=== PATIENT | male | born 1995 | race Caucasian/White ===

== ENCOUNTER 2021-02-16 18:40 | Emergency (ER) | payer OTHER, MEDICAID, SELFPAY ==
[2021-02-16 18:52] VITALS: BP 141/81; PULSE 66; RESP 16; TEMP 37.4; O2SAT 99; BMI 26.2
[2021-02-16 19:18] LABS: COVID19 -Nasal RAPID Negative (Negative)
--- NOTE | 2021-02-16 19:35 | ED.URI ---
HPI - URI/Sore Throat <Navdeep Marrero PA-C - Last Filed: 02/16/21 19:48> General Chief Complaint: Upper Respiratory Symptoms Stated Complaint: Wet Cough, Congested Chest Area Time Seen by Provider: 02/16/21 19:01 Source: patient Mode of arrival: Ambulatory History of Present Illness HPI Narrative: Domo presents today with chief complaint fever that started a couple days ago, sinus congestion, sore throat and cough. He reports that the fevers nor with him and was only for about 1 day. He denies any significant chest pain, difficulty breathing, shortness of breath or any other acute concerns or complaints at this time. He is otherwise healthy and denies any significant past medical problems. He is unvaccinated for COVID but denies any known contacts. Related Data Previous Rx's Medication Instructions Recorded albuterol sulfate 90 mcg/actuation 2 puff INHALATION Q6H PRN #8.5 g 02/16/21 aerosol inhaler Allergies Allergy/AdvReac Type Severity Reaction Status Date / Time methylphenidate Allergy Mild TACHYCARDIA Unverified 02/16/21 18:57 Review of Systems <Navdeep Marrero PA-C - Last Filed: 02/16/21 19:48> Review of Systems Narrative: As per HPI Patient History <Navdeep Marrero PA-C - Last Filed: 02/16/21 19:48> Social History Smoking Status: Smoker, status unknown Smoking Status: Smoker, status unknown Substance Use Type: marijuana Exam <Navdeep Marrero PA-C - Last Filed: 02/16/21 19:48> Narrative Exam Narrative: Const General: cooperative, healthy appearing, comfortable and no acute distress Nutritional Appearance: average body habitus and well nourished Orientation: alert and oriented x3 HENMT Head: normal to inspection and normocephalic Ears: hearing grossly normal bilaterally, external ears normal, TM's normal bilaterally, EAC's normal, mastoids normal and no periauricular adenopathy Nose: external nose normal, nares normal and no nasal discharge Face and sinus: normal facial exam, sinuses nontender and face symmetric Mouth: oral mucosae normal, lip normal, tongue normal and moist mucous membranes Teeth and gingiva: dentition normal and gingiva normal Throat: posterior oropharynx normal, uvula midline, no postnasal drainage and no uvular edema Eyes periorbital findings normal, eyelids normal, conjunctivae normal Neck: normal visual inspection, full ROM, no lymphadenopathy, no meningeal signs and supple Resp normal respiratory effort, able to speak in complete sentences, not labored and no respiratory distress, diffuse rhonchi noted bilaterally. Cardio regular rate regular rhythm Heart Sounds: no gallops, no murmurs and no rubs Extrem normal to inspection, no pedal edema and no calf tenderness Neuro Alert and Oriented x3, normal gait, moves all extremities. Initial Vital Signs Initial Vital Signs: Vital Signs Temperature 99.3 F 02/16/21 18:52 Pulse Rate 66 02/16/21 18:52 Respiratory Rate 16 02/16/21 18:52 Blood Pressure 141/81 H 02/16/21 18:52 Pulse Oximetry 99 02/16/21 18:52 <Judson Gorman DO - Last Filed: 02/17/21 04:26> Initial Vital Signs Initial Vital Signs: Vital Signs Temperature 99.3 F 02/16/21 18:52 Pulse Rate 66 02/16/21 18:52 Respiratory Rate 16 02/16/21 18:52 Blood Pressure 141/81 H 02/16/21 18:52 Pulse Oximetry 99 02/16/21 18:52 Course <Navdeep Marrero PA-C - Last Filed: 02/16/21 19:48> Orders Ordered: ED Orders 02/16/21 18:57 COVID19 -Nasal swab/Pre-Proc Stat Vital Signs Vital signs: Vital Signs - 8 hr 02/16/21 20:47 Pulse Rate 90 Respiratory Rate 20 Pulse Oximetry 100 <DO Young Stauffer Last Filed: 02/17/21 04:26> Orders Ordered: ED Orders 02/16/21 18:57 COVID19 -Nasal swab/Pre-Proc Stat Vital Signs Vital signs: Vital Signs - 8 hr 02/16/21 20:47 Pulse Rate 90 Respiratory Rate 20 Pulse Oximetry 100 MDM - URI/Sore Throat <SIMON Johnston Last Filed: 02/16/21 19:48> Lab Data Labs: Lab Results 02/16/21 Range/Units 18:57 SARS-CoV-2 (PCR) Negative (Negative) MDM Narrative Medical decision making narrative: Differential diagnosis includes pneumonia, URI, SARS-CoV-2 infection, influenza. Patient's physical examination is reassuring at this time. He has diffuse rhonchi suggestive of bronchitis. No focal lung abnormalities noted and he is saturating well at this time. I think that pneumonia is less likely. COVID swab came back negative. We will treat with bronchodilator therapy as well as [id number] symptomatic therapy. Return precautions discussed. Patient verbalizes understanding and agrees to plan and has no further concerns at this time. Thank you A [id number] system was used with the dictation of this note. Please disregard any spelling or grammatical errors. <Judson Gorman DO - Last Filed: 02/17/21 04:26> Lab Data Labs: Lab Results 02/16/21 Range/Units 18:57 SARS-CoV-2 (PCR) Negative (Negative) Discharge Plan Departure Patient Disposition: Home Clinical Impression: Bronchitis Instructions: DI for Bronchiolitis Activity Restrictions/Additional Instructions: It was very nice to meet you this evening. Your COVID test came back negative. I suspect that you have bronchitis at this time. Please use Mucinex, Sudafed and the albuterol inhaler as needed to help with symptoms. If you experience worsening fever, worsening shortness of breath, chest pain or any other new or worsening complaints do not hesitate to return for re-evaluation. Thank you Navdeep Marrero PA-C Prescriptions: New albuterol sulfate 90 mcg/actuation HFA aerosol inhaler 2 puff inhalation Q6H PRN (Reason: shortness of breath or wheezing) Qty: 8.5 RF: 0 <Judson Gorman DO - Last Filed: 02/17/21 04:26> Cosign ED Attending Cosignature Attestation: I was immediately available in the department for consultation. This documentation has been reviewed and I agree with assessment and plan. Supervised by Judson Gorman DO
[2021-02-16 20:47] VITALS: PULSE 90; RESP 20; O2SAT 100
== END 2021-02-16 20:59 | disposition home or self-care (01) ==
PROVIDERS: Emergency Medicine; Emergency Provider Physician Assistant
DX: J40 Bronchitis, not specified as acute or chronic (principal); Z20.822 Contact with and (suspected) exposure to COVID-19
CPT/HCPCS: 87635; 99282; C9803

== ENCOUNTER 2022-04-29 11:56 | Emergency (ER) | payer OTHER, MEDICAID, SELFPAY ==
[2022-04-29 12:26] VITALS: BP 166/77; PULSE 73; RESP 16; TEMP 37.3; O2SAT 100; BMI 26.7
--- NOTE | 2022-04-29 12:30 | DI.RAD.S_ITS ---
PROCEDURE: XR CHEST 1V INDICATIONS: cough TECHNIQUE: One view of the chest was acquired. COMPARISON: None. FINDINGS: Surgical changes and devices: None. Lungs and pleura: Lungs are clear. No pleural effusions or pneumothorax. Mediastinum: Mediastinal contours appear normal. Heart size is normal. Bones and chest wall: No suspicious bony lesions. Overlying soft tissues appear unremarkable. IMPRESSION: No focal infiltrates are seen. Dictated by: Roosevelt Aguilar M.D. on 04/29/2022 at 12:00 Approved by: Roosevelt Aguilar M.D. on 04/29/2022 at 12:00
[2022-04-29 13:27] LABS: Influenza A - CEPHEID Flu A POSITIVE (NEGATIVE); Influenza B - CEPHEID Flu B NEGATIVE (NEGATIVE); Respiratory Syncytial Virus Negative (Negative)
[2022-04-29 13:31] LABS: COVID-19 CEPHEID 4-PLEX PCR Negative (Negative)
--- NOTE | 2022-04-29 14:15 | ED.URI ---
HPI - URI/Sore Throat General Chief Complaint: Upper Respiratory Symptoms Stated Complaint: Fever/Cough/Chest Tightness Time Seen by Provider: 04/29/22 14:10 Source: patient Mode of arrival: Ambulatory History of Present Illness HPI Narrative: Patient has had cough cold congestion fever and chills since last Saturday. No vomiting or diarrhea. No trouble breathing no dyspnea. Related Data Previous Rx's Medication Instructions Recorded albuterol sulfate 90 mcg/actuation 2 puff inhalation Q6H PRN 02/16/21 aerosol inhaler shortness of breath or wheezing #8.5 grams Allergies Allergy/AdvReac Type Severity Reaction Status Date / Time methylphenidate Allergy Mild TACHYCARDIA Unverified 02/16/21 18:57 Review of Systems Review of Systems Narrative: GENERAL: Positive chills, fatigue, malaise, fever, sweats. HEENT: negative sinus pain, ear pain, sore throat, positive nasal congestion RESPIRATORY: negative dyspnea, positive cough CARDIOVASCULAR: negative chest pain, palpitations GASTROINTESTINAL: negative nausea, vomiting, abdominal pain : negative dysuria, frequency, hematuria MUSCULOSKELETAL: negative muscle or bony pain SKIN: negative rash, skin lesions NEUROLOGIC: negative weakness, numbness ROS Unobtainable: All systems reviewed & are unremarkable except as noted in HPI and below Patient History Social History Smoking Status: Smoker, status unknown Smoking Status: Smoker, status unknown Substance Use Type: marijuana Exam Narrative Exam Narrative: GENERAL: in no distress, not toxic not dyspneic HEAD: Normocephalic. EYES: Pupils equal round No scleral icterus. ENT: Mucous membranes moist. NECK: Trachea midline. CARDIOVASCULAR: Regular rate and rhythm without murmurs RESPIRATORY: Clear to auscultation. Breath sounds equal bilaterally. No wheezes, rales, or rhonchi. GASTROINTESTINAL: Abdomen soft, non-tender EXTREMITIES: No gross deformities. BACK: No flank tenderness. NEURO: AOx4. SKIN: Warm and dry PSYCH: Not anxious, is cooperative Initial Vital Signs Initial Vital Signs: Vital Signs Temperature 99.1 F 04/29/22 12:26 Pulse Rate 73 04/29/22 12:26 Respiratory Rate 16 04/29/22 12:26 Blood Pressure 166/77 H 04/29/22 12:26 Pulse Oximetry 100 04/29/22 12:26 Oxygen Delivery Method 04/29/22 12:26 Course Course Course Narrative: No new issues during course of stay Orders Ordered: ED Orders 04/29/22 12:28 Covid-19 + FLU A/B + RSV - PCR Stat 04/29/22 12:30 XR chest 1V Stat Reevaluation(s) Reevaluation #1: Reviewed results with patient. Patient in no distress. Agrees with treatment plan, referral for primary care given. Work note provided. He desires discharge home. Return precautions reviewed with him Time: 14:19 Vital Signs Vital signs: Vital Signs - 8 hr 04/29/22 12:26 Temperature 99.1 F Pulse Rate 73 Respiratory Rate 16 Blood Pressure 166/77 H Pulse Oximetry 100 Oxygen Delivery Method Room Air MDM - URI/Sore Throat Differential Diagnosis Differential diagnosis: Likely upper respiratory infection, viral infection, bronchitis and influenza Lab Data Labs: Lab Results 04/29/22 Range/Units 12:28 SARS-CoV-2 (PCR) Negative (Negative) Influenza A (RT-PCR) Flu a positive H (NEGATIVE) Influenza B (RT-PCR) Flu b negative (NEGATIVE) RSV (PCR) Negative (Negative) Imaging Data Chest x-ray: Radiologist's Impression: [address] [id number] ReportSigned Patient: Domo Mari FMR#: [id number]: [id number]:[id number]/Sex: te of Service: 04/29/22Loc: EDAccession Number: [id number] Procedure: XR chest 1V Ordering Provider: Homero Astorga MD PROCEDURE: XR CHEST 1V INDICATIONS: cough TECHNIQUE: One view of the chest was acquired. COMPARISON: None. FINDINGS: Surgical changes and devices: None. Lungs and pleura: Lungs are clear. No pleural effusions or pneumothorax. Mediastinum: Mediastinal contours appear normal. Heart size is normal. Bones and chest wall: No suspicious bony lesions. Overlying soft tissues appear unremarkable. IMPRESSION: No focal infiltrates are seen. Dictated by: Roosevelt Aguilar M.D. on 04/29/2022 at 12:00 Approved by: Roosevelt Aguilar M.D. on 04/29/2022 at 12:00 [facility] Narrative Medical decision making narrative: Appropriate for discharge home. Exam reassuring laboratory studies reassuring patient not hypoxic. Not toxic. No blood work indicated. Return precautions reviewed with patient. Imaging reassuring. He desires discharge home. Work note provided. Discharge Plan Departure Patient Disposition: Home Clinical Impression: Influenza Instructions: DI for Influenza -- Adult Activity Restrictions/Additional Instructions: See family doctor this week for re-evaluation. Call provided primary care referral phone number to establish family doctor. Call [phone]. Keep well hydrated. Continue [id number] ibuprofen or Tylenol for pain or fever. Return if worse if any questions or concerns. You may return to work when fever free 24 hours without use of fever medication Prescriptions: No Action albuterol sulfate 90 mcg/actuation HFA aerosol inhaler 2 puff inhalation Q6H PRN (Reason: shortness of breath or wheezing) Qty: 8.5 0RF Referrals: Miscellaneous,[facility] [Primary Care Provider] - Stand Alone Forms: Work Release Note Visit Report Forms: Patient Portal/API
--- NOTE | 2022-04-29 14:21 | PC.NURSE ---
seen, assessed, and DC'd by MD without RN involvement
== END 2022-04-29 14:21 | disposition home or self-care (01) ==
PROVIDERS: Emergency Provider Emergency Medicine
DX: J10.1 Influenza due to other identified influenza virus with other respiratory manifestations (principal); Z20.822 Contact with and (suspected) exposure to COVID-19
CPT/HCPCS: 0241U; 71045; 99283